=== PATIENT | female | born 1980 | race Hispanic/Latino ===

== ENCOUNTER 2017-02-03 12:06 | Emergency (ER) | payer SELFPAY ==
[2017-02-03] MEDS ORDERED: Ibuprofen 200 MG TAB ONE (14:33)
--- NOTE | 2017-02-03 15:33 | RAD ---
THREE VIEWS LEFT ANKLE 02/03/17 HISTORY: Left ankle pain. 36-year-old female. FINDINGS/IMPRESSION: AP, lateral and oblique views left ankle is obtained. Old healed plates and screws seen along the dis ayse left fibula and medial malleolus. No evidence of acute left ankle fractures or bony lesions seen. Radiographic appearance of the left a nkle is unchanged since the previous exam from 12/15/12. POS: [facility]
== END 2017-02-03 14:55 | disposition home or self-care (01) ==
LOC: ERS 12:06
DX: S90.512A Abrasion, left ankle, initial encounter (principal); L08.9 Local infection of the skin and subcutaneous tissue, unspecified; X50.1XXA Overexertion from prolonged static or awkward postures, initial encounter

== ENCOUNTER 2017-08-28 23:17 | Emergency (ER) | payer SELFPAY | END 2017-08-29 00:33 | disposition home or self-care (01) | LOC: ERS 23:17 | DX: G62.9 Polyneuropathy, unspecified (principal); Z87.891 Personal history of nicotine dependence | CPT/HCPCS: 99283 ==